=== PATIENT | male | born 1990 | race Two or more races ===

== ENCOUNTER 2018-03-17 19:32 | Emergency (ER) | payer OTHER ==
[~2018-03-17] VITALS: Ht 180.3 cm; Wt 78.0 kg
[2018-03-17 19:35] VITALS: Ht 180.3 cm; Wt 78.0 kg
[2018-03-17 20:11] LABS: PLATELET COUNT 247 x10^3mcL (130-400)
[2018-03-17 20:14] LABS: BASOPHIL % 0.2 % (0-2); RED CELL DISTRIBUTION WIDTH 12.6 % (11.5-14.5)
[2018-03-17 20:16] LABS: CALCIUM 9.5 mg/dL (8.5-10.1); CARBON DIOXIDE 21.4 mmol/L (21-32); CHLORIDE SERUM 101 mmol/L (98-107); CREATININE SERUM 1.1 mg/dL (0.7-1.3); GFR1 > 60 mL/min; GLUCOSE SERUM 109 mg/dL (74-106); POTASSIUM SERUM 3.5 mmol/L (3.5-5.1); SODIUM SERUM 139 mmol/L (136-145)
[2018-03-17 20:20] LABS: ALBUMIN 4.7 g/dL (3.4-5.0); ALKALINE PHOSPHATASE 72 U/L (46-116); ALT/SGPT 50 U/L (16-63); AMYLASE 69 U/L (25-115); AST/SGOT 19 U/L (15-37); BILIRUBIN TOTAL 0.97 mg/dL (0.20-1.00); LIPASE 57 IU/L (73-393); TOTAL PROTEIN, SERUM 8.7 g/dL (6.4-8.2)
[2018-03-17 22:08] VITALS: BP 104/71
== END 2018-03-17 22:08 | disposition home or self-care (01) ==
LOC: ED 19:32
PROVIDERS: Emergency Medicine
DX: R11.2 Nausea with vomiting, unspecified (principal); R50.9 Fever, unspecified; T62.91XA Toxic effect of unspecified noxious substance eaten as food, accidental (unintentional), initial encounter; Y92.89 Other specified places as the place of occurrence of the external cause
CPT/HCPCS: 83880; C9113; J2405; J2765; J7030